=== PATIENT | female | born 1990 | race Two or more races ===

== ENCOUNTER 2024-07-02 12:36 | Outpatient (CLI) | payer OTHER | END 2024-07-02 12:41 | disposition home or self-care (01) | LOC: PRENATAL 12:36 | PROVIDERS: ATTEND Obstetrics & Gynecology Maternal & Fetal Medicine | DX: O44.00 Complete placenta previa NOS or without hemorrhage, unspecified trimester (principal); Z3A.21 21 weeks gestation of pregnancy ==

== ENCOUNTER 2024-09-17 15:47 | Outpatient (CLI) | payer OTHER | END 2024-09-17 15:48 | disposition home or self-care (01) | LOC: PRENATAL 15:47 | PROVIDERS: ATTEND Obstetrics & Gynecology Maternal & Fetal Medicine | DX: O26.849 Uterine size-date discrepancy, unspecified trimester (principal); O36.8199 Decreased fetal movements, unspecified trimester, other fetus; Z3A.34 34 weeks gestation of pregnancy ==

== ENCOUNTER 2024-11-04 14:15 | Inpatient (IN) | payer OTHER ==
[~2024-11-04] VITALS: Ht 170.2 cm; Wt 96.2 kg
[2024-11-10] MEDS ORDERED: AMPICILLIN SODIUM 1,000 MG VIAL IV SCH ×2 (09:37→16:00)
[2024-11-10] MEDS ORDERED: AMPICILLIN SODIUM 2,000 MG VIAL IV NR (09:45)
[2024-11-10] MEDS ORDERED: OXYTOCIN 500 ML IV ONE (09:45)
[2024-11-10 09:58] VITALS: BP 115/71
[2024-11-10] MEDS ORDERED: PRENATABS RX T1 EACH PO (10:13)
[2024-11-10 10:27] LABS: URINE APPEARANCE Clear; URINE BILIRRUBIN Negative (NEGATIVE); URINE BLOOD Negative; URINE COLOR Yellow; URINE GLUCOSE Negative (NEGATIVE); URINE KETONE Negative (NEGATIVE); URINE LEUKOCYTE Small; URINE NITRATE Negative; URINE PROTEIN Negative (NEGATIVE); URINE UROBILINOGEN 0.2 E.U./dl
[2024-11-10 10:28] LABS: URINE BACTERIA 106.7 uL (0.0-1933); URINE EPITHELIAL CELLS 3.5 uL (0.0-38.8); URINE WBC 116.2 uL (0.0-23.2)
[2024-11-10 10:37] LABS: URINE CAST 0.14 uL (0.0-1.40); URINE RBC 1.6 uL (0.0-20.8)
[2024-11-10 11:31] LABS: BASO % 0.2 % (0.1-1.2); EOS # 0.14 (0.04-0.54); EOS % 1.6 % (0.7-7.0); LYMPH # 1.99 (1.18-3.74); LYMPH % 22.7 % (19.3-53.1); MEAN PLATELET VOLUME 11.00 fl (9.4-12.4); MONO # 0.64 (0.24-0.82); MONO % 7.3 % (4.7-12.5); NEUT # 5.88 (1.56-6.13); NEUT % 67.2 % (34.0-71.1); RED CELL DISTRIBUTION WIDTH 14.8 % (11.6-14.4)
[2024-11-10 11:55] LABS: INR 0.95
[2024-11-10] MEDS ORDERED: MORPHINE SULFATE 4 MG/ML CARTRIDGE IV ONE (15:15)
[2024-11-10 15:27] VITALS: BP 117/66
[2024-11-10] MEDS ORDERED: ERYTHROMYCIN BASE OPHT 1GM EACH TUBE OP ONE (20:45)
[2024-11-10] MEDS ORDERED: MORPHINE SULFATE 4 MG/ML CARTRIDGE IV SCH (21:00)
[2024-11-10] MEDS ORDERED: MORPHINE SULFATE 4 MG/ML VIAL IV ONE ×2 (21:00→21:30)
[2024-11-10 22:10] VITALS: BP 114/71
[2024-11-11] MEDS ORDERED: KETOROLAC TROMETHAMINE 60 MG VIAL IM ONE (01:00)
[2024-11-11 01:13] VITALS: BP 132/74
[2024-11-11] MEDS ORDERED: OxyCODONE HCL 5 MG TABLET (ROXICODONE) PO SCH (05:00)
[2024-11-11 05:52] VITALS: BP 114/71
[2024-11-11 06:57] LABS: BASO % 0.3 % (0.1-1.2); EOS # 0.06 (0.04-0.54); EOS % 0.5 % (0.7-7.0); LYMPH # 2.11 (1.18-3.74); LYMPH % 19.3 % (19.3-53.1); MEAN PLATELET VOLUME 11.00 fl (9.4-12.4); MONO # 0.79 (0.24-0.82); MONO % 7.2 % (4.7-12.5); NEUT # 7.87 (1.56-6.13); NEUT % 72.2 % (34.0-71.1); RED CELL DISTRIBUTION WIDTH 14.6 % (11.6-14.4)
[2024-11-11 08:13] VITALS: BP 110/75
[2024-11-11] MEDS ORDERED: PNV,CALCIUM 72/IRON/FOLIC ACID 1 TAB TABLET PO SCH (09:00)
[2024-11-11] MEDS ORDERED: DOCUSATE SODIUM 100MG CAP PO SCH (09:00)
[2024-11-11] MEDS ORDERED: SIMETHICONE 125 MG CAPSULE PO SCH (09:00)
[2024-11-11] MEDS ORDERED: DIPHENHYDRAMINE HCL 25 MG CAPSULE PO NR (11:00)
[2024-11-12 01:22] VITALS: BP 111/74
[2024-11-12 04:00] VITALS: BP 113/63
[2024-11-12 09:17] VITALS: BP 118/73
[2024-11-12 16:27] VITALS: BP 112/73
[2024-11-13] VITALS: BP 123/80
[2024-11-13 08:38] VITALS: BP 114/75
== END 2024-11-13 12:32 | disposition home or self-care (01) | DRG 788 ==
LOC: OB/GYN 11-10 09:34 → LDR 11-10 09:34 → O/R 11-10 18:55 → OB/GYN 11-10 20:54
PROVIDERS: ADMIT Obstetrics & Gynecology; ATTEND Obstetrics & Gynecology
PROC: 4A1HXCZ Monitoring of Products of Conception, Cardiac Rate, External Approach (ICD-10-PCS; 2024-11-10)
PROC: 10D00Z1 Extraction of Products of Conception, Low, Open Approach (ICD-10-PCS; principal; 2024-11-11)
DX: O82 Encounter for cesarean delivery without indication (principal); O33.8 Maternal care for disproportion of other origin; O99.824 Streptococcus B carrier state complicating childbirth; Z3A.39 39 weeks gestation of pregnancy; Z37.0 Single live birth